=== PATIENT | female | born 1970 | race Caucasian/White ===

== ENCOUNTER 2020-06-12 11:42 | Emergency (ER) | payer BC, OTHER ==
[2020-06-12 11:47] VITALS: BP 101/70
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
[2020-06-12] MEDS ORDERED: ONDANSETRON ODT 8 MG PO ONE (12:00)
[2020-06-12] MEDS ORDERED: SODIUM CHLORIDE FLUSH 10ML SYR IVF ONE (12:00)
--- NOTE | 2020-06-12 12:08 | NUR ---
vss, no s/s of dextox, pt getting dressed to leave ama.
[2020-06-12] MEDS ORDERED: PLEASE ENTER ALLERGIES MC SCH (12:30)
[2020-06-12] MEDS ORDERED: PLEASE ENTER HEIGHT AND WEIGHT MC SCH (12:30)
--- NOTE | 2020-06-12 12:42 | NUR ---
This RN to bedside after pt dressed self. Pt states "you're kicking me out, you're not allowed to do this." This RN attempted to educate pt again about lab work and medication orders. This RN informed pt that she is refusing care and that is her choice but refusing care also means leaving the hospital. Pt yelling at this RN "you're not listening to me." Pt signed AMA form, on phone with ride home, steady gait to d/c with all belongings. "I'm just going to go home and drink," pt educated about resources again, pt refused.
== END 2020-06-12 12:51 | disposition home or self-care (01) ==
LOC: ED 12:30
DX: F10.10 Alcohol abuse, uncomplicated (principal); R10.9 Unspecified abdominal pain
CPT/HCPCS: 99283

== ENCOUNTER 2020-12-07 13:43 | Emergency (ER) | payer OTHER ==
[~2020-12-07] VITALS: Ht 160 cm; Wt 60.0 kg
[2020-12-07] MEDS ORDERED: SODIUM CHLORIDE FLUSH 10ML SYR IVF ONE (14:00)
[2020-12-07] MEDS ORDERED: SODIUM CHLORIDE 0.9% 1,000ML IVBOLUS ONE ×3 (14:00→15:30)
--- NOTE | 2020-12-07 14:21 | NUR ---
PT LAYING ON SIDE IN BED, DOES NOT WANT BLANKETS PULLED DOWN FOR ASSESSMENT, TELLS RN TO LEAVE DURING ASSESSMENTS. PT ENCOURAGED TO REST.
[2020-12-07 14:28] LABS: BASOPHILS % (AUTO) 1 % (0-1); EOSINOPHILS % (AUTO) 1 % (1-7); LYMPHOCYTES % (AUTO) 46 % (22-44); MEAN CORPUSCULAR HEMOGLOBIN 31.2 pg (27.0-34.8); MEAN CORPUSCULAR HGB CONC 34.7 g/dL (32.4-35.8); MEAN PLATELET VOLUME 6.8 fL (7.4-10.4); MONOCYTES % (AUTO) 6 % (2-9); NEUTROPHILS % (AUTO) 47 % (42-75); PLATELET COUNT 234 x10^3/uL (130-400); RED BLOOD COUNT 3.56 x10^6/uL (3.82-5.3); RED CELL DISTRIBUTION WIDTH 13.9 % (9.6-15.2)
--- NOTE | 2020-12-07 14:32 | NUR ---
REPORT TO YORDY VELEZ. PT MOVED FROM TRAUMA 4 TO 23. IVF STILL INFUSING UPON TRANSFER. ADDITIONAL BLANKETS APPLIED FOR PT COMFORT.
[2020-12-07 14:35] LABS: ALANINE AMINOTRANSFERASE 24 U/L (12-78); ALBUMIN 2.7 g/dL (3.4-5.0); ANION GAP 8 mmol/L (5-15); CALCIUM 7.4 mg/dL (8.5-10.1); CHLORIDE 115 mmol/L (98-107)
[2020-12-07 14:40] LABS: ALKALINE PHOSPHATASE 110 U/L (45-117); BILIRUBIN,TOTAL 0.2 mg/dL (0.2-1.0); TOTAL PROTEIN 6.1 g/dL (6.4-8.2); TROPONIN I < 0.015 ng/mL (0.000-0.045)
--- NOTE | 2020-12-07 14:40 | NUR ---
ASSUMED CARE OF PT, PT SLEEPING INTERMITTENLTY, BP HAS IMPROVED.
--- NOTE | 2020-12-07 15:39 | NUR ---
PT'S BP TRENDING DOWN, REPORTED TO MD, PER MD GIVE 1L NS BOLUS. BOLUS INFUSING.
--- NOTE | 2020-12-07 16:31 | NUR ---
PT SLEEPING IN NAD, BP IMPROVING WITH IVF.
[2020-12-07] MEDS ORDERED: POTASSIUM CHLORIDE 20 MEQ TAB.ER.PRT PO ONE (17:30)
[2020-12-07] MEDS ORDERED: POTASSIUM CHLORIDE 20 MEQ TAB.ER.PRT ONE (18:18)
[2020-12-07 18:21] VITALS: BP 100/65
--- NOTE | 2020-12-07 18:22 | NUR ---
PROVIDED MEAL TO PT, MEDICATED PER MAR WITH PO K+. ENCOURAGED PT TO EAT MEAL.
--- NOTE | 2020-12-07 19:03 | NUR ---
GAVE SWEATPANTS AND T-SHIRT TO PT. PT STATES SHE WILL GET AN UBER RIDE BACK TO [facility].
== END 2020-12-07 19:21 | disposition home or self-care (01) ==
LOC: ED 14:00
DX: F10.220 Alcohol dependence with intoxication, uncomplicated (principal); E86.0 Dehydration; I95.9 Hypotension, unspecified; Y90.9 Presence of alcohol in blood, level not specified
CPT/HCPCS: 36415; 80053; 80320; 82962; 84484; 85025; 93005; 96360; 96361; 99285; J7030; G0480